=== PATIENT | male | born 1995 | race Two or more races ===

== ENCOUNTER 2017-03-28 09:59 | Emergency (ER) | payer MEDICAID ==
--- NOTE | 2017-03-28 10:23 | ER Document Report ---
ED Medical Screen (RME) - General Chief Complaint: Suicidal Ideation Stated Complaint: PSYCH EVAL Time Seen by Provider: 03/28/17 10:15 Notes: Patient is a 21-year-old male who is new to the area from [place] who presents emergency department today from referral from [facility] with suicidal ideations. Patient states that he has a history of suicidal attempts, suicidal ideations that have required hospitalization in the past and his home state of [place]. Patient states that it [facility] today he was there for a new patient visit to establish care and to get medications filled for anxiety and depression when he mentioned that he is having suicidal ideations and he was referred over here for evaluation. Patient denies any current suicidal attempts over this past week but is been having ideations and starting to develop a plan. Past medical history significant for depression, anxiety, history of asthma Denies any past surgical history Social tobacco use, denies any alcohol use, admits to marijuana use but denies any IV drug use. I have greeted and performed a rapid initial assessment of this patient. A comprehensive ED assessment and evaluation of the patient, analysis of test results and completion of the medical decision making process will be conducted by additional ED providers. TRAVEL OUTSIDE OF THE U[place] IN LAST 30 DAYS: No - Related Data Allergies/Adverse Reactions: No Known Allergies Allergy (Verified 03/28/17 10:01) Past Medical History Renal/ Medical History: Denies: Hx Peritoneal Dialysis Physical Exam - Vital signs Vitals: Temp Pulse Resp BP Pulse Ox 98.3 F 91 H 18 146/86 H 98 03/28/17 10:01 03/28/17 10:01 03/28/17 10:01 03/28/17 10:01 03/28/17 10:01 Course - Vital Signs Vital signs: Temp Pulse Resp BP Pulse Ox 98.3 F 91 H 18 146/86 H 98 03/28/17 10:01 03/28/17 10:01 03/28/17 10:01 03/28/17 10:01 03/28/17 10:01
[2017-03-28 10:52] LABS: ABSOLUTE BASOPHILS # (AUTO) 0.1 10^3/uL (0.0-0.2); ABSOLUTE EOSINOPHILS # (AUTO) 0.4 10^3/uL (0.0-0.6); ABSOLUTE LYMPHOCYTES (AUTO) 2.5 10^3/uL (0.5-4.7); ABSOLUTE MONOCYTES (AUTO) 0.5 10^3/uL (0.1-1.4); ABSOLUTE NEUT (AUTO) 5.9 10^3/uL (1.7-8.2); BASOPHILS % (AUTO) 1.2 % (0-2); EOSINOPHILS % (AUTO) 3.8 % (0-6); HEMATOCRIT 47.9 % (37.9-51.0); HEMOGLOBIN 16.2 g/dL (13.5-17.0); HGB HCT DIFFERENCE 0.7; LYMPHOCYTES % (AUTO) 27.1 % (13-45); MEAN CORPUSCULAR HEMOGLOBIN 29.9 pg (27.0-33.4); MEAN CORPUSCULAR HGB CONC 33.9 g/dL (32.0-36.0); MEAN CORPUSCULAR VOLUME 88 fl (80-97); MONOCYTES % (AUTO) 4.8 % (3-13); RED BLOOD COUNT 5.43 10^6/uL (4.35-5.55); RED CELL DISTRIBUTION WIDTH 12.6 % (11.5-14.0); SEGMENTED NEUTROPHILS % (AUTO) 63.1 % (42-78); WHITE BLOOD COUNT 9.3 10^3/uL (4.0-10.5)
[2017-03-28 11:11] LABS: ALANINE AMINOTRANSFERASE 96 U/L (10-40); ALBUMIN 4.2 g/dL (3.7-5.6); ALKALINE PHOSPHATASE 156 U/L (65-260); ANION GAP 12 (5-19); ASPARTATE AMINO TRANSFERASE 46 U/L (10-45); BILIRUBIN,DIRECT 0.3 mg/dL (0.0-0.4); BILIRUBIN,TOTAL 0.4 mg/dL (0.2-1.3); BLOOD UREA NITROGEN 11 mg/dL (7-20); CALCIUM 9.6 mg/dL (8.4-10.2); CARBON DIOXIDE 25 mmol/L (22-30); CHLORIDE 102 mmol/L (98-107); CREATININE RESULT 0.68 mg/dL (0.52-1.25); GLUCOSE 132 mg/dL (75-110); POTASSIUM 4.5 mmol/L (3.6-5.0); SODIUM 138.9 mmol/L (137-145); TOTAL PROTEIN 7.6 g/dL (6.3-8.2)
[2017-03-28 11:15] LABS: ALCOHOL < 10 mg/dL (NONE DETECTED)
[2017-03-28 12:47] LABS: APPEARANCE,URINE CLEAR; BILIRUBIN,URINE NEGATIVE (NEGATIVE); GLUCOSE, URINE NEGATIVE (NEGATIVE); KETONES,URINE NEGATIVE (NEGATIVE); LEUKOCYTE ESTERASE,URINE NEGATIVE (NEGATIVE); NITRITE,URINE NEGATIVE (NEGATIVE); PROTEIN,URINE NEGATIVE (NEGATIVE); URINE SPECIFIC GRAVITY 1.017; UROBILINOGEN,URINE NEGATIVE mg/dL (<2.0)
[2017-03-28 13:09] LABS: URINE BARBITURATES SCREEN NEGATIVE; URINE METHADONE SCREEN NEGATIVE; URINE OPIATES LOW NEGATIVE; URINE PHENCYCLIDINE SCREEN NEGATIVE
--- NOTE | 2017-03-28 14:43 | ER Document Report ---
ED General - General Chief Complaint: Suicidal Ideation Stated Complaint: PSYCH EVAL Time Seen by Provider: 03/28/17 10:15 TRAVEL OUTSIDE OF THE [place] IN LAST 30 DAYS: No - HPI Patient complains to provider of: Suicidal ideation Notes: Patient coming in today for evaluation of suicidal ideation. Patient recently moved from [place] to the [facility]. Patient states history of previous psychiatric disease with inpatient treatment. Patient states she is to take medications for his symptoms however has not been on any medication for a year. Patient states the symptoms started a few days ago on Sunday patient arrived here and [place] on Sunday and states that his fiance recently left him. Patient states he does not have a plan but "been thinking about hurting myself for some time". Denies any other medical problems denies fever chills nausea vomiting diarrhea - Related Data Allergies/Adverse Reactions: No Known Allergies Allergy (Verified 03/28/17 10:01) Past Medical History - Social History Smoking Status: Current Every Day Smoker Chew tobacco use (# tins/day): No Frequency of alcohol use: None Drug Abuse: Marijuana Family History: Reviewed & Not Pertinent Patient has suicidal ideation: Yes Patient has homicidal ideation: No Pulmonary Medical History: Reports: Hx Asthma - as a child Renal/ Medical History: Denies: Hx Peritoneal Dialysis Psychiatric Medical History: Reports: Hx Depression Surgical Hx: Negative Review of Systems - Review of Systems Constitutional: No symptoms reported EENT: No symptoms reported Cardiovascular: No symptoms reported Respiratory: No symptoms reported Gastrointestinal: No symptoms reported Genitourinary: No symptoms reported Male Genitourinary: No symptoms reported Musculoskeletal: No symptoms reported Skin: No symptoms reported Hematologic/Lymphatic: No symptoms reported Neurological/Psychological: Suicidal ideation -: Yes All other systems reviewed and negative Physical Exam - Vital signs Vitals: Temp Pulse Resp BP Pulse Ox 98.3 F 91 H 18 146/86 H 98 03/28/17 10:01 03/28/17 10:01 03/28/17 10:01 03/28/17 10:01 03/28/17 10:01 Interpretation: Normal - General General appearance: Appears well, Alert - HEENT Head: Normocephalic, Atraumatic Eyes: Normal Pupils: PERRL - Respiratory Respiratory status: No respiratory distress Chest status: Nontender Breath sounds: Normal Chest palpation: Normal - Cardiovascular Rhythm: Regular Heart sounds: Normal auscultation Murmur: No - Abdominal Inspection: Normal Distension: No distension Bowel sounds: Normal Tenderness: Nontender Organomegaly: No organomegaly - Back Back: Normal, Nontender - Extremities General upper extremity: Normal inspection, Nontender, Normal color, Normal ROM , Normal temperature General lower extremity: Normal inspection, Nontender, Normal color, Normal ROM , Normal temperature, Normal weight bearing. No: Lisy's sign - Neurological Neuro grossly intact: Yes Cognition: Normal Orientation: AAOx4 Sy Coma Scale Eye Opening: Spontaneous Sy Coma Scale Verbal: Oriented Sy Coma Scale Motor: Obeys Commands Sy Coma Scale Total: 15 Speech: Normal Motor strength normal: LUE, RUE, LLE, RLE Sensory: Normal - Psychological Associated symptoms: Normal affect, Normal mood - Skin Skin Temperature: Warm Skin Moisture: Dry Skin Color: Normal Course - Re-evaluation Re-evalutation: 03/28/17 14:42 Lab work does not show any critical pathology. Patient otherwise medically cleared for psychiatric evaluation and disposition according to our psychiatric team. - Vital Signs Vital signs: Temp Pulse Resp BP Pulse Ox 98.3 F 91 H 18 146/86 H 98 03/28/17 10:01 03/28/17 10:01 03/28/17 10:01 03/28/17 10:01 03/28/17 10:01 - Laboratory Result Diagrams: 03/28/17 10:36 03/28/17 10:36 Laboratory results interpreted by me: 03/28/17 03/28/17 10:36 11:25 Glucose 132 H AST 46 H ALT 96 H Urine Blood SMALL H Salicylates < 1.0 L Acetaminophen < 10 L Discharge - Discharge Clinical Impression: Suicidal ideation Condition: Fair Disposition: PSYCH HOSP/UNIT
--- NOTE | 2017-03-28 17:04 | EKG REPORT ---
SEVERITY:- NORMAL ECG - SINUS RHYTHM : Confirmed by: Aurelia Salgado MD 28-Mar-2017 17:03:03
[2017-03-29] MEDS ORDERED: BENZTROPINE MESYLATE 1 MG TABLET PO ONE (09:16)
[2017-03-29] MEDS ORDERED: OLANZAPINE 5 MG TABLET PO ONE (09:17)
--- NOTE | 2017-03-29 10:54 | ER Document Report ---
Doctor's Note Notes: 03/29/17 10:52 Rounds: Chart reviewed and patient interview. Patient is calm and attentive and pleasant interacting. Says he does not feel suicidal at this time. Vital signs are all been normal. Initial lab studies were all normal except for very minor elevation of LFTs, not felt to be clinically significant as the patient has no symptoms referable to the liver area and no reason to have significant liver disorder. Patient appears to be medically stable for transfer or discharge. Mental health has assessed the patient feels he can be discharged. Madison Lebron MD
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
[2017-03-29 12:15] VITALS: BP 107/61
== END 2017-03-29 12:21 | disposition home or self-care (01) ==
LOC: ER 09:59
DX: R45.851 Suicidal ideations (principal); F32.9 Major depressive disorder, single episode, unspecified; F41.9 Anxiety disorder, unspecified
CPT/HCPCS: 36415; 80053; 80307; 81001; 85025; 93005; 93010; 99285